=== PATIENT | male | born 1980 | race Caucasian/White ===

== ENCOUNTER 2017-11-09 06:27 | Observation (INO) | payer BC ==
[~2017-11-09] VITALS: Ht 188 cm; Wt 95.7 kg
--- NOTE | ~2017-11-09 | EKG ---
[address] [place] [address] ELECTROCARDIOGRAM REPORT Name: KERRY PARK Room #: 210[facility] [id number] Admission: 11/09/17 Attend Phys: Santiago Iverson MD Discharge: 11/10/17 Date of : 84 Report #: [id number] THIS REPORT FOR: //name// [facility] Test Date: 2017-11-10 Test Time: 08:39:24 Pat Name: KERRY PARK Department: Room: 210 Gender: M [employer]ing [employer]: CHANG : 1980 Requested By: Santiago Iverson Order Number: [id number] MD: Zohaib Tatum Measurements Intervals [place] Rate: 79 P: 61 VA: 169 QRS: 40 QRSD: 101 T: -22 QT: 365 QTc: 419 Interpretive Statements Sinus rhythm Atrial premature complex RSR' in V1 or V2, probably normal variant Inferior T-wave abnormality Baseline wander in lead(s) II,III,aVF,V1,V6 No previous ECG available for comparison Electronically Signed On 11-11-2017 8:01:37 CDT by Zohaib Tatum [email or web address] <ELECTRONICALLY SIGNED> By: Zohaib Tatum MD, [facility] 11/11/17 08 8 0839 Zohaib Tatum MD, [facility] /EPI
--- NOTE | ~2017-11-09 | D ---
[facility] [place] [address] DISCHARGE SUMMARY Name: KERRY PARK Room #: 210-P [facility]#: [id number] Admission: 11/09/17 Attend Phys: Santiago Iverson MD Discharge: Date of : 84 Report #: [id number] THIS REPORT FOR: //name// CC: GINETTE physician/PCP Santiago Iverson DISCHARGE DIAGNOSIS: Htvsz-Qiwpgmamr-Qkkqc syndrome. HISTORY OF PRESENT ILLNESS: The patient is a 36-year-old with a longstanding history of palpitations and evidence of Iyzqj-Eqmzbnvxl-Uysld on a 12-lead EKG. His EKG is suggestive of a right-sided pathway. He was brought in for an EP study. He had evidence of a right-sided antegrade only conducting pathway. There was no retrograde conduction via this pathway. It was noted to be isoproterenol sensitive. On 2 mcg of isoproterenol, I could pace down the accessory pathway with no evidence of block when pacing the atrium at 230 milliseconds. As such, this was a high-risk pathway for sudden cardiac . The procedure was very prolonged due to the location of the pathway at 10 o'clock along the tricuspid annulus. Eventually, we were able to localize the pathway and successfully ablate this. It would come back and required significant amount of ablation at this location. Post-ablation, there was normalization of the QRS HV interval and no arrhythmias could be induced. There were no procedure complications. HOSPITAL COURSE: The patient was monitored in the CCU overnight. He did well. On the day of discharge, he denied any chest pain, shortness of breath, fevers or chills. On physical exam, heart was regular rate and rhythm. Lungs were clear to auscultation bilaterally. Both groins showed no bruising or hematomas. On telemetry, he remained in sinus rhythm and EKG revealed a normal QRS morphology with no recurrence of his accessory pathway. As such, the patient was deemed stable for discharge home. Discharge instructions were reviewed. I recommended that he take an aspirin 325 mg once a day for 1 week. I will have the patient follow up with me in 3 months. By: 0827 09 Santiago Iverson MD /nt
[2017-11-09 07:11] VITALS: BP 135/87
[2017-11-09 07:15] LABS: BASOPHILS 0.5 % (0.0-2.0); EOSINOPHILS 3.3 % (0.0-3.0); HEMATOCRIT 43.5 % (42.0-52.0); HEMOGLOBIN 15.1 gm/dL (14.0-18.0); LYMPHOCYTES 23.2 % (24.0-44.0); MCH 31.6 pg (26.0-34.0); MCHC 34.6 g/dL (28.0-37.0); MCV 91.1 fL (80.0-100.0); MONOCYTES 8.3 % (1.0-8.0); PLATELET COUNT 215 thou/uL (150-400); POLYS 64.7 % (36.0-66.0); RBC 4.77 mil/uL (4.50-6.00); RDW 12.5 % (10.5-14.5); WBC 6.1 thou/uL (4.0-11.0)
[2017-11-09] MEDS ORDERED: CLARITIN10 MG PO (07:20)
[2017-11-09] MEDS ORDERED: ZANTAC 150MG T150 MG PO (07:21)
[2017-11-09] MEDS ORDERED: MAGOX 400400 MG PO (07:21)
[2017-11-09] MEDS ORDERED: VITAMIN D5000 UNIT PO (07:22)
[2017-11-09] MEDS ORDERED: CENTRUM SILVER1 EAC2 PO (07:22)
[2017-11-09 07:26] LABS: CREATININE 1.1 mg/dL (0.7-1.3)
[2017-11-09 07:32] LABS: TOTAL BILIRUBIN 0.3 mg/dL (<0.1-1.0); TOTAL PROTEIN 7.1 g/dL (6.4-8.2)
[2017-11-09 07:52] LABS: APTT 24.4 Seconds (24.5-32.8); PROTIME 9.6 Seconds (9.3-11.4)
[2017-11-09 18:20] VITALS: BP 156/89
[2017-11-09 19:21] VITALS: BP 156/89
[2017-11-10 00:03] VITALS: BP 139/84
[2017-11-10 04:31] VITALS: BP 132/85
[2017-11-10] MEDS ORDERED: OMEPRAZOLE 20 M20 M1 PO (06:43)
[2017-11-10 07:45] VITALS: BP 137/95
[2017-11-10 09:09] VITALS: BP 137/95
== END 2017-11-10 09:40 | disposition home or self-care (01) ==
LOC: CATH 06:27 → 2N 18:18 → ENTRNSPT 11-10 09:29 → EDTRNSPTSTS 11-10 09:32 → 2N 11-10 09:40
PROVIDERS: Internal Medicine Cardiovascular Disease
DX: I47.1 Supraventricular tachycardia (principal); I45.6 Pre-excitation syndrome; R79.1 Abnormal coagulation profile; F17.210 Nicotine dependence, cigarettes, uncomplicated; Z82.49 Family history of ischemic heart disease and other diseases of the circulatory system
CPT/HCPCS: 62110; 62900; 70005